=== PATIENT | female | born 1975 | race Caucasian/White ===

== ENCOUNTER 2023-04-06 15:11 | Outpatient (REF) | payer MEDICAID, SELFPAY ==
[2023-04-06 19:22] LABS: Influenza A PCR NEGATIVE (Negative); Influenza B PCR NEGATIVE (Negative); Resp Syncy Virus RNA Qual PCR NEGATIVE (Negative); SARS COV2 PCR INHOUSE NEGATIVE (Negative)
== END 2023-04-06 15:12 | disposition home or self-care (01) ==
LOC: HO.CHCLNP 15:11
PROVIDERS: Visit Provider Registered Nurse
DX: R05.1 Acute cough (principal); Z20.822 Contact with and (suspected) exposure to COVID-19
CPT/HCPCS: 0241U